=== PATIENT | female | born 1990 | race Caucasian/White ===

== ENCOUNTER 2017-11-21 00:59 | Day surgery (SDC) | payer BC ==
[2017-03-27 11:15] VITALS: Ht 170.2 cm; Wt 66.7 kg
[~2017-11-21] VITALS: Ht 170.2 cm; Wt 66.7 kg
[~2017-11-21 00:59] MED LIST: BIOT1TAB12 PO; CALC-515 PO; ESCI20TA38 PO; FLUT16SP19 NS; HYDR2TAB4 PO; IBUP800T37 PO; MECL25TA9 PO; ONDA4TAB97 PO; PRED20TA6 PO; PREN-127 PO; SENN-187 PO
[2017-11-21] MEDS ORDERED: PROPOFOL EMUL(*) 10MG/ML 20 ML 40 ML ONE (10:11)
[2017-11-21 11:10] VITALS: BP 102/85
[2017-11-21] MEDS ORDERED: LIDOCAINE/SOD BICARB 8.4% SYR ID ONE (13:20)
[2017-11-21] MEDS ORDERED: NORMOSOL R SOLN(*) 1000 ML BAG 1,000 ML IV PRN (13:20)
[2017-11-21 13:23] VITALS: BP 92/54
[2017-11-21] MEDS ORDERED: ASPI-757 PO (13:30)
[2017-11-21 14:07] VITALS: BP 104/73
[2017-11-21 14:10] VITALS: BP 90/54
[2017-11-21 14:20] VITALS: BP 110/94
== END 2017-11-21 14:30 | disposition home or self-care (01) ==
LOC: OR 00:59
PROVIDERS: ATTEND Internal Medicine Gastroenterology
DX: Z12.11 Encounter for screening for malignant neoplasm of colon (principal); K64.8 Other hemorrhoids; Z15.09 Genetic susceptibility to other malignant neoplasm
CPT/HCPCS: 00812; 45378; 81025; J2704

== ENCOUNTER → 2018-05-02 | Outpatient (CLI) | payer BC ==
[2017-03-27 11:15] VITALS: BMI 30.9
[~2018-05-02] MED LIST changes: +ASPI-757 PO
--- NOTE | 2018-05-02 13:13 | RADIOLOGY IMAGING REPORT ---
FACILITY: [facility] PATIENT NAME: Olga Worley : 1990 MR: [id number] V: [id number] EXAM DATE: ORDERING PHYSICIAN: LATANYA MORENO TECHNOLOGIST: Location: [facility] [place] Patient: Olga Worley : 1990 Visit/Account:[id number] Date of Sevice: 05/02/2018 [facility] TRANSVAGINAL NON-OB HISTORY: GENETIC SUSCEPTIBILITY TO OTHER MALIGNANT NEOPLASM, Walker syndrome TECHNIQUE: Transvaginal ultrasound pelvis. COMPARISON: None. FINDINGS: Uterus: Retroverted; 6.3 cm length x 4.2 cm AP x 5.5 cm transverse. Myometrium: Unremarkable. Endometrium: Slightly heterogeneous although the patient is currently menstruating; double thickness 10 mm. Cervix: Grossly negative. Ovaries: Right - 4.3 x 2.3 x 2.5 cm Left - 3.9 x 1.5 x 2.1 centimeters Blood flow is documented in each ovary by duplex Doppler ultrasound. Adnexa: There is a mild amount of free fluid in the left adnexa. Free pelvic fluid: Moderate amount of free fluid in the cul-de-sac IMPRESSION: Heterogeneous endometrium although by history patient is currently menstruating. There is some fluid and hypoechoic material within the endometrium. Although this could be related to patient's current menstruation correlation with hCG level may be helpful to exclude a missed . Moderate amount of fluid in the cul-de-sac and mild amount of fluid in the left adnexa Report Dictated By: Janna Phelps MD at 05/02/2018 12:28 PM Report E-Signed By: Janna Phelps MD at 05/02/2018 1:09 PM WSN:[email or web address]
== END ==
LOC: US 03:25
PROVIDERS: ATTEND Obstetrics & Gynecology
DX: Z15.09 Genetic susceptibility to other malignant neoplasm (principal); N94.0 Mittelschmerz
CPT/HCPCS: 76830

== ENCOUNTER → 2018-11-07 | Outpatient (CLI) | payer BC ==
[2017-03-27 11:15] VITALS: BMI 30.9
[2018-11-07 11:48] LABS: PLATELET COUNT, AUTOMATED 296 K/uL (150-450)
== END ==
LOC: LAB 08:20
PROVIDERS: ATTEND Obstetrics & Gynecology
DX: Z34.81 Encounter for supervision of other normal pregnancy, first trimester (principal); B96.89 Other specified bacterial agents as the cause of diseases classified elsewhere
CPT/HCPCS: 36415; 81001; 85025; 86592; 86703; 86762; 86850; 86900; 86901; 87088; 87340

== ENCOUNTER → 2018-11-27 | Outpatient (CLI) | payer BC ==
[2017-03-27 11:15] VITALS: BMI 30.9
== END ==
LOC: LAB 08:50
PROVIDERS: ATTEND Obstetrics & Gynecology
DX: Z34.91 Encounter for supervision of normal pregnancy, unspecified, first trimester (principal)
CPT/HCPCS: 87491; 87591

== ENCOUNTER → 2019-01-29 | Outpatient (CLI) | payer BC ==
[2017-03-27 11:15] VITALS: BMI 30.9
[~2019-01-29] MED LIST changes: +ASPI-1471 PO; +MAGN500C10 PO
--- NOTE | 2019-01-29 16:54 | RADIOLOGY IMAGING REPORT ---
FACILITY: [facility] [place] PATIENT NAME: Olga Worley : 1990 MR: [id number] V: [id number] EXAM DATE: ORDERING PHYSICIAN: NIECY MAYBERRY TECHNOLOGIST: Location: [facility] Patient: Olga Worley : 1990 Visit/Account:[id number] Date of Sevice: 01/29/2019 [facility] [place] History: survey ADDITIONAL HISTORY: LMP 09/13/2018. Estimated menstrual age 19 weeks and five days COMPARISON STUDIES: none FINDINGS: Intrauterine gestations: one presentation: Variable heart rate: 152 bpm Amniotic fluid volume: CHANEL 11.8 cm; MVP 4.9 cm Placenta: Anterior. No evidence of previa. Maternal adnexa: negative Cervix: closed Anatomic Survey: Neural anatomy and spinal axis appear unremarkable. Face lips and nose are visualized. Four-chambe r heart and outflow tracks, stomach, kidneys, bladder , umbilical cord, normal cord insertion seen. 2 arms and 2 legs visualized. anatomy unremarkable. Biometrics: BPD: 4.5 cm corresponding to 19 weeks and four days. 40th percentile HC: 16.4 cm corresponding to 19 weeks one day 17 percentile AC: 13.6 cm corresponding to 19 weeks and one day 23rd percentile FL: 3.2 cm corresponding to 20 weeks zero days 50th percentile Measurements are concordant or within normal variance with composite sonographic age of 19 weeks and four days corresponding almost exactly with clinical dates. Estimated weight (EFW): 292 grams +/- 43 grams . 30th percentile based on clinical dates. IMPRESSION: Single living intrauterine gestation in quadrant presentation with biometric measurements and composi te sonographic age within normal variance of previously established clinical dates. anatomy: Unremarkable Report Dictated By: Edson Lee MD at 01/29/2019 4:40 PM Report E-Signed By: Edson Lee MD at 01/29/2019 4:47 PM WSN:[email or web address]
== END ==
LOC: US 12:47
PROVIDERS: ATTEND Obstetrics & Gynecology
DX: Z36.89 Encounter for other specified antenatal screening (principal)